=== PATIENT | female | born 1970 | race Caucasian/White ===

== ENCOUNTER → 2016-10-20 | Outpatient (CLI) | payer OTHER ==
--- NOTE | ~2016-10-20 | PUL ---
PATIENT'S NAME: AUNDREA LAYNE [facility] AGE: 45 Y [address] ROOM: [place] [address] LOCATION: [facility] ADMIT DATE: 10/20/2016 Pulmonary DISCHARGE DATE: FAMILY PHYSICIAN: SILVIA NELSON MD ATTENDING PHYSICIAN: Estela Cornell NAME OF PROCEDURE: Home sleep test DATE OF PROCEDURE: 10/20/16 TECH: Yadira Mccarty [facility] [[email or web address]] SUMMARY: Patient underwent home sleep testing using a type III device and was studied for 7 hours 57 minutes. There was 1 apnea and 47 hypopneas for an apnea/hypopnea index mildly elevated at 6 events per hour. All of the events occurred with the patient sleeping supine. Oxygen saturations ranged from 83%- 94%. Heart rate ranged from 49 to 106 beats per minute. IMPRESSION: Mild essentially positional obstructive sleep apnea. PLAN: Patient will receive results from the ordering provider. MD MARLON LEWIS/ /[id number] dtt: 11/07/16 0739 Christiano David E. dtd: 10/26/16 1202
== END | disposition disaster alternative care site (69) ==
LOC: GSLP 10-14 12:48
DX: G47.10 Hypersomnia, unspecified (principal); G47.33 Obstructive sleep apnea (adult) (pediatric)
CPT/HCPCS: G0399